=== PATIENT | male | born 1950 | race Caucasian/White ===

== ENCOUNTER 2021-09-25 12:04 | Outpatient (CLI) | payer MEDICARE, OTHER ==
[~2021-09-25 12:04] MED LIST: Iopamidol 370 76% 100 ML VIAL ONE
== END 2021-09-25 12:05 | disposition home or self-care (01) ==
LOC: CT 12:04
PROVIDERS: ATTEND Thoracic Surgery (Cardiothoracic Vascular Surgery)
DX: I65.23 Occlusion and stenosis of bilateral carotid arteries (principal); I25.10 Atherosclerotic heart disease of native coronary artery without angina pectoris
CPT/HCPCS: 70498; 82565; Q9967

== ENCOUNTER 2021-10-29 09:55 | Outpatient (CLI) | payer OTHER ==
[2021-10-29 11:14] LABS: Hemoglobin 14.2 g/dL (13.5-17.5); Mean Corpuscular HGB CONC 35.1 g/dL (32.0-36.0); Mean Corpuscular Hemoglobin 34.4 pg (27.0-33.0); Mean Corpuscular Volume 97.8 fl (81.2-95.1); Mean Platelet Volume 9.9 fl (7.4-10.4); Platelet Count 226 10x3/uL (150-450); RBC Distribution Width 12.8 % (11.5-14.5); Red Blood Cell (RBC) Count 4.13 10x6/uL (4.32-5.72); White Blood Cell (WBC) Count 4.6 10x3/uL (3.5-10.5)
[2021-10-29 11:48] LABS: Anion Gap 13 mmol/L (10-20); BUN (Urea Nitrogen) 11 mg/dL (8.4-25.7); Calc. Creatinine Clearance 0 mL/min (70-130); Carbon Dioxide 23 mmol/L (23-31); Chloride 105 mmol/L (98-107); Estimated GFR 79; Glucose 106 mg/dL (80-115); Sodium 137 mmol/L (136-145)
== END 2021-10-29 09:56 | disposition home or self-care (01) ==
LOC: LABBT 09:55
PROVIDERS: ATTEND Thoracic Surgery (Cardiothoracic Vascular Surgery)
DX: Z01.818 Encounter for other preprocedural examination (principal); Z20.822 Contact with and (suspected) exposure to COVID-19
CPT/HCPCS: 80048; 85027; 87811; 93005; 93010

== ENCOUNTER 2021-10-29 10:00 | Inpatient (IN) | payer OTHER ==
[2021-11-01] MEDS ORDERED: SUGAMMADEX SODIUM 200 MG/2 ML VIAL ONE (06:16)
[2021-11-01] MEDS ORDERED: niCARdipine 25 MG/10 ML VIAL ONE (06:16)
[2021-11-01] MEDS ORDERED: fentaNYL Citrate/PF 100 MCG/2 ML SYRINGE ONE (06:16)
[2021-11-01] MEDS ORDERED: Protamine Sulfate 250 MG/25 ML VIAL ONE (06:36)
[2021-11-01] MEDS ORDERED: Bupivacaine/Epinephrine 0.25% 30 ML VIAL ONE (06:36)
[2021-11-01] MEDS ORDERED: Heparin 5,000 UNITS/ML VIAL ONE (06:36)
[2021-11-01] MEDS ORDERED: Protamine Sulfate 50 MG/5 ML VIAL ONE (06:37)
[2021-11-01] MEDS ORDERED: CEFAZOLIN 2 GM VIAL ONE (07:25)
[2021-11-01] MEDS ORDERED: Sodium Chloride 0.9% 0 ML ONE (07:25)
[2021-11-01] MEDS ORDERED: Ondansetron PF 4 MG/2 ML Vial ONE (07:32)
[2021-11-01] MEDS ORDERED: PROPOFOL 200 MG/20 ML VIAL ONE (07:32)
[2021-11-01] MEDS ORDERED: Dexamethasone 20 MG/5 ML VIAL ONE (07:32)
[2021-11-01] MEDS ORDERED: Lidocaine 1% MPF 2 ML VIAL ONE (07:32)
[2021-11-01] MEDS ORDERED: Rocuronium Bromide 10 MG/ML (10ML VIAL) ONE (07:32)
[2021-11-01] MEDS ORDERED: niCARdipine 25 MG in Sodium Chloride 0.9% 250 ML 250 ML IVPB PRN (09:17)
[2021-11-01] MEDS ORDERED: Fentanyl 100 MCG/2 ML VIAL SLOW IVP PRN ×2 (09:17)
[2021-11-01] MEDS ORDERED: NOREPINEPHRINE 8 MG/250 ML-D5W 250 ML IVPB PRN (09:17)
[2021-11-01] MEDS ORDERED: HYDROcodone/Acetaminophen 5/325 mg Tablet PO PRN ×2 (09:17)
[2021-11-01] MEDS ORDERED: Ondansetron PF 4 MG/2 ML Vial IVP PRN (09:17)
[2021-11-01] MEDS ORDERED: Acetaminophen 325 MG TAB PO PRN (09:17)
[2021-11-01] MEDS ORDERED: Acetaminophen 325 MG TAB ONE (09:37)
[2021-11-01 10:47] VITALS: BMI 26.7
[2021-11-01] MEDS: Sodium Chloride 0.9% 1,000 ML IV SCH ×2 (11:55→20:44)
[2021-11-01] MEDS: CEFAZOLIN 2 GM in Sodium Chloride 0.9% 100 ML IVPB SCH ×2 (13:58→20:48)
[2021-11-01] MEDS ORDERED: Atorvastatin Calcium 40 MG TAB PO SCH (21:00)
[2021-11-01] MEDS ORDERED: Non-Formulary Item 1 EACH (Atorvastatin Calcium [Lipitor] 80 MG Tablet) PO SCH (21:00)
[2021-11-02] MEDS: CEFAZOLIN 2 GM in Sodium Chloride 0.9% 100 ML IVPB SCH (05:07)
[2021-11-02] MEDS: Sodium Chloride 0.9% 1,000 ML IV SCH (05:17)
[2021-11-02] MEDS ORDERED: Aspirin Chewable 81 MG TAB PO SCH (09:00)
[2021-11-02] MEDS ORDERED: Donepezil HCl 5 MG TAB PO SCH (09:00)
[2021-11-02] MEDS ORDERED: Clopidogrel Bisulfate 75 MG TAB PO SCH (09:00)
[2021-11-02 10:16] VITALS: TEMP 98.9
== END 2021-11-02 10:03 | disposition home or self-care (01) | DRG 39 ==
LOC: SURG A 11-01 06:13 → CCU 11-01 11:02
PROVIDERS: ADMIT Thoracic Surgery (Cardiothoracic Vascular Surgery); ATTEND Thoracic Surgery (Cardiothoracic Vascular Surgery)
PROC: 03CL0ZZ Extirpation of Matter from Left Internal Carotid Artery, Open Approach (ICD-10-PCS; principal; 2021-11-01)
PROC: 03UL0JZ Supplement Left Internal Carotid Artery with Synthetic Substitute, Open Approach (ICD-10-PCS; 2021-11-01)
DX: I65.22 Occlusion and stenosis of left carotid artery (principal); I25.10 Atherosclerotic heart disease of native coronary artery without angina pectoris; E78.2 Mixed hyperlipidemia; I48.0 Paroxysmal atrial fibrillation; I50.9 Heart failure, unspecified; Z20.822 Contact with and (suspected) exposure to COVID-19; Z79.899 Other long term (current) drug therapy; Z79.02 Long term (current) use of antithrombotics/antiplatelets; Z98.890 Other specified postprocedural states; Z95.5 Presence of coronary angioplasty implant and graft; Z90.49 Acquired absence of other specified parts of digestive tract; Z90.89 Acquired absence of other organs; Z82.3 Family history of stroke; Z87.891 Personal history of nicotine dependence; Z79.52 Long term (current) use of systemic steroids
CPT/HCPCS: 80048; 85027; 87811; 93005; 93010; C1768; J0690; J1100; J1642; J1644; J2405; J2704; J2720; J3490; J7050